=== PATIENT | male | born 1960 | race African-American/Black ===

== ENCOUNTER 2024-06-02 20:06 | Inpatient (IN) | payer OTHER ==
[~2024-06-02] VITALS: Ht 175.3 cm; Wt 100.8 kg
--- NOTE | 2024-06-02 20:33 | ED.PDOC ---
History of Present Illness HPI Comments A 63 year old male brought in by EMS presents to the ED with the chief complaint of hypoglycemia onset today. Per EMS, called EMS due to the patient not responding. Patient was taking a nap and was not responding to , upon EMS arrival patient's blood sugar was 25 and was given 250 mL Dextrose 10% and repeat BS was 69 and oral glucose was given in route. Patient states he has no symptoms and did not eat prior to his nap. He has a past medical history of DM, HTN, HLD. No other symptoms or modifying factors present at this time. Chief Complaint: Hypoglycemia Time Seen by MD: 20:25 Reviewed Notes: Medications, Allergies Allergies: Coded Allergies: No Known Drug Allergy (Verified Allergy, Unknown, 06/02/24) Information Source: Patient, Emergency Med Personnel Mode of Arrival: EMS Severity: Moderate Timing: Hours Duration: Since onset Prehospital treatment: None Past Medical History PAST MEDICAL HISTORY: DM, High Lipids, HTN Surgical History: Denies all surgeries Family History Family History: Reviewed,noncontributory to illness, No family hx of Cancer, No family hx of DM, No family hx of Heart fifi, No family hx of HTN, No family hx ofKidney fifi, No family hx of Liver fifi, No family hx of Lung fifi, No family hx of Stroke Social History Smoker: Non-Smoker Alcohol: Denies ETOH Use Drugs: Denies Drug Use Lives In: Home Constitutional: denies: chills, diaphoresis, fatigue, fever, malaise, sweats, weakness, others EENTM: denies: blurred vision, double vision, ear bleeding, ear discharge, ear drainage, ear pain, ear ringing, eye pain, eye redness, hearing loss, mouth pain, mouth swelling, nasal discharge, nose bleeding, nose congestion, nose pain, photophobia, tearing, throat pain, throat swelling, voice changes, others Respiratory: denies: cough, hemoptysis, orthopnea, SOB at rest, shortness of breath, SOB with excertion, stridor, wheezing, others Cardiovascular: denies: chest pain, dizzy spells, diaphoresis, Dyspnea on exertion, edema, irregular heart beat, left arm pain, lightheadedness, palpitations, PND, syncope, others Gastrointestinal: denies: abdomen distended, abdominal pain, blood streaked bowels, constipated, diarrhea, dysphagia, difficulty swallowing, hematemesis, melena, nausea, poor appetite, poor fluid intake, rectal bleeding, rectal pain, vomiting, others Genitourinary: denies: burning, dysuria, flank pain, frequency, hematuria, incontinence, penile discharge, penile sore, pain, testicle pain, testicle swelling, urgency, others Neurological: denies: dizziness, fainting, headache, left sided numbness, left sided weakness, numbness, paresthesia, pre-existing deficit, right sided numbness, right sided weakness, seizure, speech problems, tingling, tremors, weakness, others Musculoskeletal: denies: back pain, gout, joint pain, joint swelling, muscle pain, muscle stiffness, neck pain, others Integumetry: denies: bruises, change in color, change in hair/nails, dryness, laceration, lesions, lumps, rash, wounds, others Allergic/Immunocompromised: denies: Difficulty Healing, Frequent Infections, Hives, Itching, others Endocrine: denies: excessive hunger, excessive sweating, excessive thirst, excessive urination, flushing, intolerance to cold, intolerance to heat, unexpl ained weight gain, unexplained weight loss, others Psychiatric: denies: anxiety, bipolar disorder, depression, hopeless, panic disorder, schizophrenia, sleepless, suicidal, others All Other Systems: Reviewed and Negative Physical Exam General Appearance: No Apparent Distress, Normal HEENT: Normal ENT Inspection, Pharynx Normal, TMs Normal Neck: Full Range of Motion, Non-Tender, Normal, Normal Inspection Respiratory: Chest Non-Tender, Lungs Clear, No Accessory Muscle Use, No Respiratory Distress, Normal Breath Sounds Cardiovascular: No Edema, No JVD, No Murmur, No Gallop, Normal Peripheral Pulses, Regular Rate/Rhythm Breast Exam: Deferred Gastrointestinal: No Organomegaly, Non Tender, No Pulsatile Mass, Normal Bowel Sounds, Soft Genitalia: Deferred Pelvic: Deferred Rectal: Deferred Extremities: No calf tenderness, Normal capillary refill, Normal inspection, Normal range of motion, Non-tender, No pedal edema Musculoskeletal : Apperance: Normal Neurologic: Alert, zipper setter chainstitch II-XII nml as Tested, No Motor Deficits, Normal Affect, Normal Mood, No Sensory Deficits Cerebellar Function: Normal Reflexes: Normal Skin: Dry, Normal Color, Warm Lymphatic: No Adenopathy Was a procedure done? Was a procedure done?: No Differential Dx Considerations may include: uncontrolled diabetes, slight abnormality, infectious etiology X-Ray, Labs, Meds, VS Vital Signs Date Time Temp Pulse Resp B/P (MAP) Pulse Ox O2 Delivery O2 Flow Rate FiO2 06/02/24 20:44 98.1 75 15 149/72 (97) 95 98.1 06/02/24 20:19 97.6 87 18 172/101 (124) 96 Lab Test 06/02/24 21:04 Range/Units White Blood Count 13.0 H 4.4-10.8 10^3/uL Red Blood Count 4.74 4.5-5.90 10^6/uL Hemoglobin 14.7 13.5-17.5 g/dL Hematocrit 43.7 41.0-53.0 % Mean Corpuscular Volume 92.1 80.0-100.0 fL Mean Corpuscular Hemoglobin 31.0 28.0-32.0 pg Mean Corpuscular Hemoglobin Concent 33.7 32.0-36.0 g/dL Red Cell Distribution Width 13.5 11.8-14.3 % Platelet Count 236 140-450 10^3/uL Mean Platelet Volume 9.3 6.9-10.8 fL Neutrophils (%) (Auto) 85.6 H 37.0-80.0 % Lymphocytes (%) (Auto) 7.0 L 10.0-50.0 % Monocytes (%) (Auto) 6.8 0.0-12.0 % Eosinophils (%) (Auto) 0.4 0.0-7.0 % Basophils (%) (Auto) 0.2 0.0-2.0 % Neutrophils # (Auto) 11.2 H 1.6-8.6 10 ^3/uL Lymphocytes # (Auto) 0.9 0.4-5.4 10 ^3/uL Monocytes # (Auto) 0.9 0-1.3 10 ^3/uL Eosinophils # (Auto) 0 0-0.8 10 ^3/uL Basophils # (Auto) 0 0-0.2 10 ^3/uL Nucleated Red Blood Cells 0.1 % Sodium Level 141 136-145 mmol/L Potassium Level 3.1 L 3.5-5.1 mmol/L Chloride Level 107 98-107 mmol/L Carbon Dioxide Level 25 20-31 mmol/L Anion Gap 9 5-15 Blood Urea Nitrogen 12 9-23 mg/dL Creatinine 1.41 H 0.700-1.30 mg/dL Glomerular Filtration Rate Calc 56 >90 mL/min BUN/Creatinine Ratio 8.5 L 10.0-20.0 Serum Glucose 80 74-106 mg/dL Calcium Level 9.4 8.7-10.4 mg/dL Troponin I High Sensitivity 376 *H </=54 ng/L Current Medications Medications (Trade) Dose Ordered Sig/Zacarias Route Start Time Stop Time Status Last Admin Dextrose 50 ml ONCE ONCE IV 06/02/24 20:30 06/02/24 20:31 DC 06/02/24 20:40 [place] [address] Ph: [phone] DIAGNOSTIC IMAGING Diagnostic Imaging Report : [id number] Signed PATIENT: JUAN PEREZ ACCT: [id number] UNIT: [id number] : 1960 LOC: ER ROOM / BED: / AGE / SEX: 63 / M ADM STATUS: REG ER SERVICE 02 ORDERING PHYSICIAN: DEIDRE ENRIQUE MD PROCEDURE(s): CXRP - CHEST PORTABLE REASON: ams, hypoglycemia ORDER NUMBER(s): [id number], ACCESSION NUMBER(s): [id number] CHEST RADIOGRAPH Indication:ams, hypoglycemia Technique: Single frontal view of the chest was obtained Comparison: None FINDINGS: Lines and Tubes: None Lungs: No focal consolidation. Pleura: No effusion. No pneumothorax. Cardiomediastinal contours: Unremarkable Bones: No acute osseous abnormality. IMPRESSION: No acute cardiopulmonary disease. ATED BY: HORACIO BANGURA DO DICTATED DATE/TIME: 06/02/242124 SIGNED BY: HORACIO BANGURA DO SIGNED DATE/TIME: 06/02/242124 CC: Time of 1ST Reevaluation: 20:55 Reevaluation 1ST: Unchanged Patient Education/Counseling: Diagnosis, Treatment, Prognosis Family Education/Counseling: No Family Present Departure 1 Departure Time of Disposition: 22:35 (Patient with a recurrent hypoglycemia. Patient also with an elevated troponin. EKGs started ischemic color chest x-ray is benign,.) Impression: Primary Impression: Hypoglycemia Additional Impression: Elevated troponin Disposition: ADMITTED INPATIENT Admit to: Med Surg Condition: Serious Critical Care Note Critical Care Time?: Yes Critical care comment: Hypoglycemia Authorized and Performed by: Deidre Enrique MD Total critical care time: Approximately 32 minutes Due to a high probability of clinically significant, life threatening deterioration, the patient required my highest level of preparedness to intervene emergently and I personally spent this critical care time directly and personally managing the patient. This critical care time included obtaining a history; examining the patient; pulse oximetry; ordering and review of studies; arranging urgent treatment with development of a management plan; evaluation of patient's response to treatment; frequent reassessment; and, discussions with other providers. This critical care time was performed to assess and manage the high probability of imminent, life-threatening deterioration that could result in multi-organ failure. It was exclusive of separately billable procedures and treating other patients and teaching time. Please see my other sections and the rest of the note for further information on patient assessment and treatment. Stability Stability form required: No Heart Score Heart Score: Heart Score Response (Comments) Value History Slightly Suspicious 0 EKG Normal 0 Age 45-64 1 Risk Factors >3 or Hx ASHD 2 Troponin >3 x's Normal limit 2 Total 5 I personally scribed for DEIDRE ENRIQUE MD ([email or web address]) on 06/02/24 at 20:33. Electronically submitted by Verenice Ardon ([email or web address]). I personally scribed for DEIDRE ENRIQUE MD ([email or web address]) on 06/02/24 at 20:37. Electronically submitted by Verenice Ardon ([email or web address]). I personally scribed for DEIDRE ENRIQUE MD ([email or web address]) on 06/02/24 at 21:37. Electronically submitted by Verenice Ardon ([email or web address]). DEIDRE ENRIQUE MD Jun 02, 2024 20:33
[2024-06-02] MEDS: DEXTROSE (50%) 50ML SYRG IV ONE (20:40)
[2024-06-02 21:27] LABS: Basophils # (auto) 0 10 ^3/uL (0-0.2); Basophils % (auto) 0.2 % (0.0-2.0); Eosinophils # (auto) 0 10 ^3/uL (0-0.8); Eosinophils % (auto) 0.4 % (0.0-7.0); Hematocrit 43.7 % (41.0-53.0); Hemoglobin 14.7 g/dL (13.5-17.5); Lymphocytes # (auto) 0.9 10 ^3/uL (0.4-5.4); Mean Corpuscular Hgb Conc. 33.7 g/dL (32.0-36.0); Mean Corpuscular Volume 92.1 fL (80.0-100.0); Monocytes # (auto) 0.9 10 ^3/uL (0-1.3); Monocytes % (auto) 6.8 % (0.0-12.0); Neutrophils # (auto) 11.2 10 ^3/uL (1.6-8.6); Neutrophils % (auto) 85.6 % (37.0-80.0); Nucleated Red Blood Cells % 0.1 %; Platelet Count (auto) 236 10^3/uL (140-450); Red Blood Cells 4.74 10^6/uL (4.5-5.90); Red Cell Distribution Width 13.5 % (11.8-14.3)
--- NOTE | 2024-06-02 21:28 | DVH ---
CHEST RADIOGRAPH Indication:ams, hypoglycemia Technique: Single frontal view of the chest was obtained Comparison: None FINDINGS: Lines and Tubes: None Lungs: No focal consolidation. Pleura: No effusion. No pneumothorax. Cardiomediastinal contours: Unremarkable Bones: No acute osseous abnormality. IMPRESSION: No acute cardiopulmonary disease.
[2024-06-02 21:59] LABS: Chloride 107 mmol/L (98-107); Potassium 3.1 mmol/L (3.5-5.1); Sodium 141 mmol/L (136-145)
[2024-06-02 22:00] LABS: Anion Gap 9 (5-15); Calcium 9.4 mg/dL (8.7-10.4); Carbon Dioxide 25 mmol/L (20-31)
[2024-06-02 22:05] LABS: BUN/Creatinine Ratio 8.5 (10.0-20.0); Blood Urea Nitrogen 12 mg/dL (9-23); Glucose 80 mg/dL (74-106)
[2024-06-03] VITALS (8 sets, daily range): BP systolic 142–160; BP diastolic 73–87; PULSE 62–85; RESP 15–19; TEMP 98.2–98.8; O2SAT 95–99
--- NOTE | 2024-06-03 01:47 | DVH ---
EXAM: CT HEAD WITHOUT CONTRAST HISTORY: ams COMPARISON: None TECHNIQUE: Axial images were obtained and reformatted in coronal and sagittal planes. All CT scans at this medical facility are performed using dose modulation techniques as appropriate t o a performed exam including the following: Automated exposure control was utilized; adjustment of th e MA and/or KV according to patient size; and use of iterative reconstruction technique. CT Dose: CTDI volume is 60 mGy. Dose-length product is 1059 mGy*cm FINDINGS: Supratentorial Region: No evidence for large acute territorial ischemia. No intracranial hemorrhage is noted. Confluent white matter hypoattenuating foci are noted bilaterally, which typically reflect chronic microvascular ischemic changes. Posterior Fossa: No acute abnormality. Brainstem: Unremarkable. Sellar/Suprasellar Region: .Tiny foci of air in the region of the bilateral cavernous sinuses. Ventricles, Cisterns, Sulci: Age-appropriate. Orbits: Unremarkable. Paranasal Sinuses: Unremarkable. Mastoid Air Cells: Unremarkable. Vasculature: Unremarkable. Bones/Soft Tissues: No acute abnormality. Other: None. IMPRESSION: No acute intracranial process. Cavernous sinus gas which are nonspecific but can be seen in the setti ng of traumatic pneumocephalus versus iatrogenic pneumocephalus versus barotrauma. Clinical correlat ion is advised.
[2024-06-03] MEDS: DEXTROSE (50%) 50ML SYRG IV ONE (02:37)
[2024-06-03] MEDS ORDERED: MORPHINE SULFATE INJ 2 MG/ml SYRG IV PRN (03:00)
[2024-06-03] MEDS ORDERED: DEXTROSE (50%) 50ML SYRG IV PRN (03:00)
[2024-06-03] MEDS ORDERED: NITROGLYCERIN 0.4 MG SL TAB SL PRN (03:00)
[2024-06-03] MEDS ORDERED: HYDROcodone-ACET 5/325MG TAB PO PRN (03:00)
[2024-06-03] MEDS ORDERED: ONDANSETRON HCL 4 MG/2 ML VIAL IV PRN (03:00)
[2024-06-03] MEDS ORDERED: DOCUSATE SOD 100 MG CAP PO PRN (03:00)
[2024-06-03] MEDS ORDERED: ACETAMINOPHEN 325 MG TAB PO PRN (03:00)
[2024-06-03] MEDS ORDERED: ENOXAPARIN SOD 80 MG/0.8ML SYRINGE SC ONE (03:00)
--- NOTE | 2024-06-03 03:24 | DVHHP2 ---
History of Present Illness Reason for Visit: Hypoglycemia History of Present Illness The patient is a 63-year-old male with past medical history of DM, hyperlipidemia, and hypertension who presented to [facility] ED for evaluation of hypoglycemia. Patient's called EMS due to patient not responding while taking a nap. When EMS arrived on the scene, the patient's blood sugar was 25 and was given 250 mL dextrose 10% and blood glucose improved to 69 en route to our facility ED. patient was seen and evaluated in the ED, laboratory data shows WBC 13.0, platelets 236, sodium 141, potassium 3.1, BUN 12, creatinine 1.41, glucose 80, troponin 380, blood pressure 160/86, pulse 72, temperature 98.1 F, O2 saturation 99% on room. Head CT showed no acute intracranial process. Please see medication orders section in the computer. On my assessment, patient denies chest pain, no headache, no dizziness, no shortness of breath, no nausea, no vomiting, no fever, no chills. Patient was admitted for further evaluation and medical management. Past Medical History DM, High Lipids, HTN Past Surgical History Denies all surgeries Family History Reviewed, noncontributory to the management of this case. Past Social History The patient lives at home, denies smoking, alcohol or illicit drugs abuse. Review of Systems Constitutional: Yes: Weakness; No: Fever, Chills, Sweats, Malaise, Other Eyes: No: Pain, Vision change, Conjunctivae inflammation, Eyelid inflammation, Other, Redness ENT: No: Ear pain, Ear discharge, Nose pain, Nose discharge, Nose congestion, Mouth pain, Mouth swelling, Throat pain, Throat swelling, Other Respiratory: No: Cough, Dry, Shortness of breath, SOB with excertion, Wheezing, Hemoptysis, Pleuritic Pain, Sputum, Wheezing, Other Cardiovascular: No: Chest Pain, Palpitations, Orthopnea, Paroxysmal Noc. Dyspnea, Edema, Lt Headedness, Other Gastrointestinal: No: Nausea, Vomiting, Abdominal Pain, Diarrhea, Constipation, Melena, Hematochezia, Other Genitourinary: No Dysuria, No Frequency, No Incontinence, No Hematuria, No Retention, No Other Musculoskeletal: No: other, neck pain, shoulder pain, arm pain, back pain, hand pain, leg pain, foot pain Skin: No: Rash, Lesions, Jaundice, Bruising, Other Neurological: No: Weakness, Numbness, Incoordination, Change in speech, Confusion, Seizures, Other Allergies: Coded Allergies: No Known Drug Allergy (Verified Allergy, Unknown, 06/02/24) Exam Vital Signs Vital Signs Date Time Temp Pulse Resp B/P (MAP) Pulse Ox O2 Delivery O2 Flow Rate FiO2 06/03/24 02:00 60 14 160/86 (110) 100 06/02/24 20:44 98.1 98.1 06/02/24 20:27 Room Air* 0 21 General Appearance: Alert, Oriented X3, Cooperative, No acute distress HEENT: Atraumatic, PERRLA, EOMI, Mucous membr. moist/pink Respiratory: Clear to auscultation, Normal air movement Cardiovascular: Regular rate, Normal S1, Normal S2, No murmurs Abdominal: Normal bowel sounds, Soft, No tenderness, No hepatospenomegaly, No masses Extremities: No clubbing, No cyanosis, No edema, Normal pulses, No tenderness/swelling Skin: No rashes, No breakdown, No significant lesion Neuro: Normal speech, Normal tone, Sensation intact, Cranial nerves 3-12 NL, Reflexes 2+, Other (Generalized weakness) Psych/Mental Status: Mental status NL, Mood NL Labs/Xrays Labs Test 06/03/24 01:31 06/03/24 00:35 06/02/24 21:04 Range/Units Troponin I High Sensitivity 353 *H </=54 ng/L POC Glucose 99 70-106 mg/dl White Blood Count 13.0 H 4.4-10.8 10^3/uL Red Blood Count 4.74 4.5-5.90 10^6/uL Hemoglobin 14.7 13.5-17.5 g/dL Hematocrit 43.7 41.0-53.0 % Mean Corpuscular Volume 92.1 80.0-100.0 fL Mean Corpuscular Hemoglobin 31.0 28.0-32.0 pg Mean Corpuscular Hemoglobin Concent 33.7 32.0-36.0 g/dL Red Cell Distribution Width 13.5 11.8-14.3 % Platelet Count 236 140-450 10^3/uL Mean Platelet Volume 9.3 6.9-10.8 fL Neutrophils (%) (Auto) 85.6 H 37.0-80.0 % Lymphocytes (%) (Auto) 7.0 L 10.0-50.0 % Monocytes (%) (Auto) 6.8 0.0-12.0 % Eosinophils (%) (Auto) 0.4 0.0-7.0 % Basophils (%) (Auto) 0.2 0.0-2.0 % Neutrophils # (Auto) 11.2 H 1.6-8.6 10 ^3/uL Lymphocytes # (Auto) 0.9 0.4-5.4 10 ^3/uL Monocytes # (Auto) 0.9 0-1.3 10 ^3/uL Eosinophils # (Auto) 0 0-0.8 10 ^3/uL Basophils # (Auto) 0 0-0.2 10 ^3/uL Nucleated Red Blood Cells 0.1 % Sodium Level 141 136-145 mmol/L Potassium Level 3.1 L 3.5-5.1 mmol/L Chloride Level 107 98-107 mmol/L Carbon Dioxide Level 25 20-31 mmol/L Anion Gap 9 5-15 Blood Urea Nitrogen 12 9-23 mg/dL Creatinine 1.41 H 0.700-1.30 mg/dL Glomerular Filtration Rate Calc 56 >90 mL/min BUN/Creatinine Ratio 8.5 L 10.0-20.0 Serum Glucose 80 74-106 mg/dL Calcium Level 9.4 8.7-10.4 mg/dL PATIENT: JUAN PEREZ IACCT: [id number] UNIT: [id number] : 1960 LOC: ER ROOM / BED: / AGE / SEX: 63 / M ADM STATUS: REG ER SERVICE 0120 ORDERING PHYSICIAN: DEIDRE ENRIQUE MD PROCEDURE(s): HWOCT - HEAD WITHOUT CONTRAST [facility]AS[facility] ORDER NUMBER(s): [id number], ACCESSION NUMBER(s): [id number] EXAM: CT HEAD WITHOUT CONTRAST HISTORY: ams COMPARISON: None TECHNIQUE: Axial images were obtained and reformatted in coronal and sagittal planes. All CT scans at this medical facility are performed using dose modulation t echniques as appropriate to a performed exam including the following: Automated exposure control was utilized; adjustment of the MA and/or KV according to patient size; and use of iterative reconstruction technique. CT Dose: CTDI volume is 60 mGy. Dose-length product is 1059 mGy*cm FINDINGS: Supratentorial Region: No evidence for large acute territorial ischemia. No intracranial hemorrhage is noted. Confluent white matter hypoattenuating foci are noted bilaterally, which typically reflect chronic microvascular ischemic changes. Posterior Fossa: No acute abnormality. Brainstem: Unremarkable. Sellar/Suprasellar Region: Tiny foci of air in the region of the bilateral cavernous sinuses. Ventricles, Cisterns, Sulci: Age-appropriate. Orbits: Unremarkable. Paranasal Sinuses: Unremarkable. Mastoid Air Cells: Unremarkable. Vasculature: Unremarkable. Bones/Soft Tissues: No acute abnormality. Other: None. IMPRESSION: No acute intracranial process. Cavernous sinus gas which are nonspecific but can be seen in the setting of traumatic pneumocephalus versus iatrogenic pneumocephalus versus barotrauma. Clinical correlation is advised. ORDERING PHYSICIAN: DEIDRE ENRIQUE MD PROCEDURE(s): CXRP - CHEST PORTABLE REASON: ams, hypoglycemia ORDER NUMBER(s): [id number], ACCESSION NUMBER(s): [id number] CHEST RADIOGRAPH Indication:ams, hypoglycemia Technique: Single frontal view of the chest was obtained Comparison: None FINDINGS: Lines and Tubes: None Lungs: No focal consolidation. Pleura: No effusion. No pneumothorax. Cardiomediastinal contours: Unremarkable Bones: No acute osseous abnormality. IMPRESSION: No acute cardiopulmonary disease. Assessment/Plan Assessment/Plan Acute renal injury Elevated troponin Hypokalemia Hypertension Leukocytosis, unspecified Generalized weakness Diabetes mellitus with hypoglycemia Plan 1. Admit to telemetry unit 2. Breathing treatment 3. Pain control management 4. Management of fluids and electrolytes 5. Consultation for hospitalist/cardiology 6. Diagnostic tests chest x-ray 7. DVT prophylaxis-on Lovenox 8. Repeat labs CBC, CMP in a.m. 9. Continue with current medical management 10. Treatment plan discussed with patient and RN. Patient verbalized understanding. Plan discussed with: Patient, Other (RN) Problem List: (1) Acute renal injury (2) Elevated troponin (3) Generalized weakness (4) Hypokalemia (5) Leukocytosis, unspecified (6) Hypertension (7) Diabetes mellitus with hypoglycemia Date of Service: Jun 03, 2024 Billing Provider: AMELIA ACOSTA DNP Common Visit Codes: 63426-[id number] INP/OBS CARE (HIGH) AMELIA ACOSTA DNP Jun 03, 2024 03:23
[2024-06-03 03:31] LABS: Urine Bacteria None Seen /hpf (None Seen)
[2024-06-03] MEDS: ENOXAPARIN SOD 40 MG/0.4 ML SYRINGE SC ONE (03:32)
[2024-06-03] MEDS: POTASSIUM CHL 20 Meq TABLET PO ONE (03:33)
[2024-06-03 03:38] LABS: Urine Blood Negative /uL (Negative); Urine Clarity Clear (Clear); Urine Color Light-Yellow (Yellow); Urine Protein, UAD 1+ (Negative); Urine Specific Gravity 1.015 (1.001-1.035); Urine Urobilinogen Normal (Negative); Urine WBC 1 /hpf (0 - 3); Urine pH 5.5 (5.0-9.0)
[2024-06-03] MEDS: cefTRIAXone 1GM/50ML D5W 50 ML IV ONE (03:52)
[2024-06-03 03:57] LABS: Basophils # (auto) 0 10 ^3/uL (0-0.2); Basophils % (auto) 0.3 % (0.0-2.0); Eosinophils # (auto) 0.1 10 ^3/uL (0-0.8); Eosinophils % (auto) 1.3 % (0.0-7.0); Hemoglobin 13.4 g/dL (13.5-17.5); Lymphocytes # (auto) 1.4 10 ^3/uL (0.4-5.4); Mean Corpuscular Hemoglobin 30.8 pg (28.0-32.0); Mean Corpuscular Hgb Conc. 33.6 g/dL (32.0-36.0); Mean Corpuscular Volume 91.8 fL (80.0-100.0); Monocytes # (auto) 0.9 10 ^3/uL (0-1.3); Monocytes % (auto) 8.9 % (0.0-12.0); Neutrophils # (auto) 7.8 10 ^3/uL (1.6-8.6); Neutrophils % (auto) 75.5 % (37.0-80.0); Platelet Count (auto) 222 10^3/uL (140-450); Red Blood Cells 4.35 10^6/uL (4.5-5.90); Red Cell Distribution Width 13.7 % (11.8-14.3); White Blood Cell 10.3 10^3/uL (4.4-10.8)
[2024-06-03 04:22] LABS: Alanine Aminotransferase 21 U/L (7-40); Albumin 3.9 g/dL (3.2-4.8); Alkaline Phosphatase 121 U/L (46-116); Anion Gap 9 (5-15); Aspartate Aminotransferase 23 U/L (13-40); BUN/Creatinine Ratio 11.9 (10.0-20.0); Blood Urea Nitrogen 16 mg/dL (9-23); Carbon Dioxide 25 mmol/L (20-31); Chloride 108 mmol/L (98-107); Glucose 131 mg/dL (74-106); Potassium 3.7 mmol/L (3.5-5.1); Sodium 142 mmol/L (136-145)
[2024-06-03 04:23] LABS: Bilirubin, Total 0.4 mg/dL (0.2-1.0)
[2024-06-03] MEDS: SODIUM CHLOR 0.9% PF (SALINE LOCK) 10ML VIAL/SYR IV SCH (05:49)
[2024-06-03] MEDS: ACCU-CHEK COMFORT CURVE STRIP VI SCH (06:00)
[2024-06-03] MEDS: InsuLIN REG 1unit/0.01ml Soln (100units/ml) SC SCH (06:01)
[2024-06-03] MEDS ORDERED: ENOXAPARIN SOD 80 MG/0.8ML SYRINGE SC SCH (10:00)
--- NOTE | 2024-06-03 12:34 | DVHINCON2 ---
Date Seen: Jun 03, 2024 Referring Physician Eric Reason for Consultation Elevated Troponin History of Present Illness 63-year-old male with PMH for HTN, HLD, dm not taking any medication at this time, presents to the hospital with altered mental status. Apparently patient was fairly lethargic and not seem in right toes and therefore EMS was called. Upon arrival patient noted to have blood glucose level of 25 and was given dextrose in the field with improved to 69 in route to facility. Upon evaluation in the ER patient's mentation had improved responding appropriately, patient also noted to be hypokalemic with potassium 3.1, PANDA with creatinine 1.41, hypertensive with blood pressure 160/86, and have elevated troponin trending 376, 380, 353, 364, 351. Patient denies any lightheadedness, palpitations, chest pains, diaphoresis. He does endorse that he gets little short of breath at times with exertion. Past Medical History HTN HLD Diabetes Past Surgical History Denies previous surgeries Family History Denies pertinent family cardiac history Social History Denies alcohol, tobacco, or illicit drug use Allergies: Coded Allergies: No Known Drug Allergy (Verified Allergy, Unknown, 06/02/24) Current Medications Current Medications Medications (Trade) Dose Ordered Sig/Zacarias Route PRN Reason Start Time Stop Time Status Last Admin Enoxaparin Sodium (Lovenox) 80 mg DAILY SC 06/03/24 10:00 UNV Diagnostic Test (Pha) (Accu-Chek Comfort Curve T) 1 strip ACHS 06/03/24 07:00 06/03/24 11:36 Insulin Human Regular (InsuLIN R) ACHS SC 06/03/24 07:00 Dextrose 50 ml UD PRN IV Blood Sugar LESS THAN 60 06/03/24 03:00 Sodium Chloride (Saline Lock Ns) 10 ml Q8HR IV 06/03/24 06:00 06/03/24 05:49 Acetaminophen/ Hydrocodone Bitart ([place] 5/325MG Tab) 1 tab Q4HP PRN PO MODERATE PAIN (4-6 PAIN SCALE) 06/03/24 03:00 Ondansetron HCl (Zofran) 4 mg Q4HP PRN IV NAUSEA / VOMITING 06/03/24 03:00 Docusate Sodium (Colace Capsule) 100 mg BIDPRN PRN PO FOR CONSTIPATION 06/03/24 03:00 Acetaminophen (Tylenol Tablet) 650 mg Q6HP PRN PO PAIN SCALE 1-3 OR TEMP>100.4 06/03/24 03:00 Nitroglycerin (Ntrostat Sublingual) 0.4 mg Q5MINP PRN SL FOR CHEST PAIN 06/03/24 03:00 Morphine Sulfate 2 mg Q30M PRN IV FOR CHEST PAIN 06/03/24 03:00 Enoxaparin Sodium (Lovenox) 40 mg DAILY SC 06/04/24 10:00 Hydralazine HCl (Apresoline Injection) 10 mg Q6HP PRN IV SBP>150 06/03/24 03:15 Ceftriaxone Sodium 50 ml @ 100 mls/hr DAILY@0300 IV 06/04/24 03:00 Review of Systems Constitutional: No: Fever, Chills, Sweats, Weakness, Malaise, Other Eyes: No: Pain, Vision change, Conjunctivae inflammation, Eyelid inflammation, Other, Redness ENT: No: Ear pain, Ear discharge, Nose pain, Nose discharge, Nose congestion, Mouth pain, Mouth swelling, Throat pain, Throat swelling, Other Respiratory: No: Cough, Dry, , Wheezing, Hemoptysis, Pleuritic Pain, Sputum, Wheezing, Other positive: Shortness of breath, SOB with exertion Cardiovascular: ; No: Chest Pain Palpitations, Orthopnea, Paroxysmal Noc. Dyspnea, Edema, Lt Headedness, Other Gastrointestinal: No: Nausea, Vomiting, Abdominal Pain, Diarrhea, Constipation, Melena, Hematochezia, Other Genitourinary: No Dysuria, No Frequency, No Incontinence, No Hematuria, No Retention, No Other Musculoskeletal: neck pain; No: other, shoulder pain, arm pain, back pain, hand pain, leg pain, foot pain Skin: No: Rash, Lesions, Jaundice, Bruising, Other Neurological: Other (Dizziness, headache.); No: Weakness, Numbness, Incoordination, Change in speech, Confusion, Seizures Vital Signs Vital Signs Date Time Temp Pulse Resp B/P (MAP) Pulse Ox O2 Delivery O2 Flow Rate FiO2 06/03/24 06:21 Nasal Cannula* 2 28 06/03/24 04:06 64 11 137/83 (101) 98 06/03/24 03:22 98.4 98.4 Physical Exam General appearance: Patient is well-developed, well-nourished, in no acute distress. HEENT: Exam shows: Normocephalic, atraumatic, PERRLA, EOMI Neck: Supple, no bruits Chest: Equal chest excursion bilaterally. Breath sounds normal-no rales or wheezes. Heart: Rhythm: Regular rate; no murmur or gallop Abdomen: Exam shows: Soft, nontender, nondistended Musculoskeletal: No clubbing, no cyanosis, no lower extremity edema Dermatology: Skin warm, moist. Neurological: Exam shows: Alert and oriented x4, normal speech Available prior records, labs, EKG, rhythm strips reviewed and interpreted Labs/Diagnostic Data Labs Test 06/03/24 11:33 06/03/24 09:48 06/03/24 03:37 06/03/24 03:15 Range/Units POC Glucose 106 70-106 mg/dl Troponin I High Sensitivity 351 *H </=54 ng/L White Blood Count 10.3 4.4-10.8 10^3/uL Red Blood Count 4.35 L 4.5-5.90 10^6/uL Hemoglobin 13.4 L 13.5-17.5 g/dL Hematocrit 40.0 L 41.0-53.0 % Mean Corpuscular Volume 91.8 80.0-100.0 fL Mean Corpuscular Hemoglobin 30.8 28.0-32.0 pg Mean Corpuscular Hemoglobin Concent 33.6 32.0-36.0 g/dL Red Cell Distribution Width 13.7 11.8-14.3 % Platelet Count 222 140-450 10^3/uL Mean Platelet Volume 9.3 6.9-10.8 fL Neutrophils (%) (Auto) 75.5 37.0-80.0 % Lymphocytes (%) (Auto) 14.0 10.0-50.0 % Monocytes (%) (Auto) 8.9 0.0-12.0 % Eosinophils (%) (Auto) 1.3 0.0-7.0 % Basophils (%) (Auto) 0.3 0.0-2.0 % Neutrophils # (Auto) 7.8 1.6-8.6 10 ^3/uL Lymphocytes # (Auto) 1.4 0.4-5.4 10 ^3/uL Monocytes # (Auto) 0.9 0-1.3 10 ^3/uL Eosinophils # (Auto) 0.1 0-0.8 10 ^3/uL Basophils # (Auto) 0 0-0.2 10 ^3/uL Nucleated Red Blood Cells 0.0 % Sodium Level 142 136-145 mmol/L Potassium Level 3.7 3.5-5.1 mmol/L Chloride Level 108 H 98-107 mmol/L Carbon Dioxide Level 25 20-31 mmol/L Anion Gap 9 5-15 Blood Urea Nitrogen 16 9-23 mg/dL Creatinine 1.35 H 0.700-1.30 mg/dL Glomerular Filtration Rate Calc 59 >90 mL/min BUN/Creatinine Ratio 11.9 10.0-20.0 Serum Glucose 131 H 74-106 mg/dL Calcium Level 9.0 8.7-10.4 mg/dL Total Bilirubin 0.4 0.2-1.0 mg/dL Aspartate Amino Transferase (AST) 23 13-40 U/L Alanine Aminotransferase (ALT) 21 7-40 U/L Alkaline Phosphatase 121 H 46-116 U/L Total Protein 6.0 5.7-8.2 g/dL Albumin 3.9 3.2-4.8 g/dL Urine Color Light-yellow Yellow Urine Clarity Clear Clear Urine pH 5.5 5.0-9.0 Urine Specific [place] 1.015 1.001-1.035 Urine Protein 1+ H Negative Urine Ketones Negative Negative Urine Blood Negative Negative /uL Urine Nitrite Negative Negative Urine Bilirubin Negative Negative Urine Urobilinogen Normal Negative mg/dL Urine Leukocyte Esterase Negative Negative /uL Urine RBC 1 0 - 3 /hpf Urine WBC 1 0 - 3 /hpf Urine Squamous Epithelial Cells Few <5 /hpf Urine Bacteria None seen None Seen /hpf Urine Glucose 1+ H Normal mg/dL Assessment (Dr. Thompson) * Elevated Troponin -likely type 2 IA. denies chest pain. EKG negative for acute ST abnormality. Continue aspirin and statin. Follow up echo. Patient will need ischemic workup inpatient versus outpatient. * Acute encephalopathy - likely in setting of hypoglycemia. CTA negative for acute intracranial process. * HTN - started on amlodipine 5 mg daily. Continue trending. * HLD - continue statin. * Hypoglycemia in setting of DM - management per primary team * PANDA - improving. Continue monitoring. Avoid nephrotoxic agents. Case Discussed with Dr Thompson. Patient having intermittent episodes of confusion during assessment. Continue trending BP, monitor response to amlodip ine. Follow-up echo. Critical care, time spent: 35 minutes This medical document was created using an electronic medical record system with voice recognition software and computerized dictation system. Although this document has been carefully reviewed, there might still be some phonetic and typographical errors. Occasional wrong-word or ``sound-alike substitutions may have occurred due to the inherent limitations of voice recognition software. These areas are purely typographical due to imperfections of the software programs and do not reflect any compromise in the patient's medical care. Please read the chart carefully and recognize, using context, where these substitutions have occurred. Thank you for allowing me to participate in the management of this patient. Plan discussed with: Patient Date of Service: Jun 03, 2024 Billing Provider: ANNE-MARIE THOMPSON MD Cardiology Common Codes: [id number] INP/OBS CARE (High), [id number] CARE 30-74 MIN NATALIA BARRY AGACNP Jun 03, 2024 12:33
[2024-06-03] MEDS: ASPirin 325 MG TAB PO ONE (14:41)
[2024-06-03] MEDS: amLODIPine BESYLATE 5 MG TAB PO ONE (14:42)
[2024-06-03] MEDS: ATORVASTATIN 20 MG TAB PO SCH (21:30)
--- NOTE | 2024-06-03 23:13 | DVHPN2 ---
Subjective The patient is a 63-year-old male with past medical history of DM, hyperlipidemia, and hypertension who presented to [facility] ED for evaluation of hypoglycemia. Patient's called EMS due to patient not responding while taking a nap. When EMS arrived on the scene, the patient's blood sugar was 25 and was given 250 mL dextrose 10% and blood glucose improved to 69 en route to our facility ED. patient was seen and evaluated in the ED, laboratory data shows WBC 13.0, platelets 236, sodium 141, potassium 3.1, BUN 12, creatinine 1.41, glucose 80, troponin 380, blood pressure 160/86, pulse 72, temperature 98.1 F, O2 saturation 99% on room. Head CT showed no acute intracranial process. Please see medication orders section in the computer. On my assessment, patient denies chest pain, no headache, no dizziness, no shortness of breath, no nausea, no vomiting, no fever, no chills. Patient was admitted for further evaluation and medical management. Update -06/03-patient reports history of diabetes and hypertension but no history of cardiac or renal nature. Also denies any family history of cardiac related diseases or deaths. Patient endorses that he was not feeling well/confused and had called EMS for him. Reviewed: Care Plan Changes from previous H/P or p: No Changes General: Per HPI Musculoskeletal: No other, No neck pain, No shoulder pain, No arm pain, No back pain, No hand pain, No leg pain, No foot pain Skin: No Rash, No Lesions, No Jaundice, No Bruising, No Other Objective Vitals Vital Signs Date Time Temp Pulse Resp B/P (MAP) Pulse Ox O2 Delivery O2 Flow Rate FiO2 06/03/24 22:00 98.2 67 17 147/78 (101) 98 98.2 06/03/24 20:00 Nasal Cannula* 2 28 Intake/Output Intake and Output 06/03/24 07:00 Intake Total 50 ml Balance 50 ml IV Total 50 ml Exam GEN: Healthy appearing, well-developed, NAD. Patient has foul order on body HEENT: NC/AT; MMM. CV: Distant heart sounds but, RRR in general LUNGS: Distant breath sounds. ABD: Soft, NT/ND, NBS, no masses or organomegaly. EXT: skin Warm, well perfused. no rashes. No clubbing, cyanosis, or edema. NEURO: Ambulating with no limitations. No focal deficits. Medications Current Medications Medications Dose Ordered Sig/Zacarias Route Start Time Stop Time Status Last Admin Dose Admin Enoxaparin Sodium 80 mg DAILY SC 06/03/24 10:00 UNV Diagnostic Test (Pha) 1 strip ACHS 06/03/24 07:00 06/03/24 21:46 1 STRIP Insulin Human Regular ACHS SC 06/03/24 07:00 06/03/24 21:52 2 UNITS Dextrose 50 ml UD PRN IV 06/03/24 03:00 Sodium Chloride 10 ml Q8HR IV 06/03/24 06:00 06/03/24 21:30 10 ML Acetaminophen/ Hydrocodone Bitart 1 tab Q4HP PRN PO 06/03/24 03:00 Ondansetron HCl 4 mg Q4HP PRN IV 06/03/24 03:00 Docusate Sodium 100 mg BIDPRN PRN PO 06/03/24 03:00 Acetaminophen 650 mg Q6HP PRN PO 06/03/24 03:00 Nitroglycerin 0.4 mg Q5MINP PRN SL 06/03/24 03:00 Morphine Sulfate 2 mg Q30M PRN IV 06/03/24 03:00 Enoxaparin Sodium 40 mg DAILY SC 06/04/24 10:00 Hydralazine HCl 10 mg Q6HP PRN IV 06/03/24 03:15 Ceftriaxone Sodium 50 ml @ 100 mls/hr DAILY@0300 IV 06/04/24 03:00 Aspirin 81 mg DAILY PO 06/04/24 10:00 Atorvastatin Calcium 40 mg HS PO 06/03/24 22:00 06/03/24 21:30 40 MG Amlodipine Besylate 5 mg DAILY PO 06/04/24 10:00 Laboratory Results Laboratory Tests 06/03/24 03:37 Chemistry Test 06/03/24 03:37 Albumin 3.9 g/dL (3.2-4.8) Calcium Level 9.0 mg/dL (8.7-10.4) Total Protein 6.0 g/dL (5.7-8.2) LFT Test 06/03/24 03:37 Alanine Aminotransferase (ALT) 21 U/L (7-40) Alkaline Phosphatase 121 U/L (46-116) H Aspartate Amino Transferase (AST) 23 U/L (13-40) Total Bilirubin 0.4 mg/dL (0.2-1.0) Urinalysis Test 06/03/24 03:15 Urine Color Light-yellow (Yellow) Urine Clarity Clear (Clear) Urine pH 5.5 (5.0-9.0) Urine Specific [place] 1.015 (1.001-1.035) Urine Protein 1+ (Negative) H Urine Ketones Negative (Negative) Urine Blood Negative /uL (Negative) Urine Nitrite Negative (Negative) Urine Bilirubin Negative (Negative) Urine Urobilinogen Normal mg/dL (Negative) Urine Leukocyte Esterase Negative /uL (Negative) Urine RBC 1 /hpf (0 - 3) Urine WBC 1 /hpf (0 - 3) Urine Squamous Epithelial Cells Few /hpf (<5) Urine Bacteria None seen /hpf (None Seen) Urine Glucose 1+ mg/dL (Normal) H Labs and/or images reviewed: Labs reviewed by me, Image(s) reviewed by me Assessment/Plan Assessment/Plan -06/03-patient reports history of diabetes and hypertension but no history of cardiac or renal nature. Also denies any family history of cardiac related diseases or deaths. Patient endorses that he was not feeling well/confused and had called EMS for him. Acute encephalopathy Altered mentation -CT head negative Chest x-ray negative Troponinemia NSTEMI type 2 On his initial eval in ED troponin is elevated, he has no history of cardiac nature Patient is consulted for Cardiology -started on aspirin and high-intensity statin -plan for echo tomorrow PANDA CKD can not be ruled out Patient presented with creatinine of 1.3 Hypertensive urgency Patient blood pressure in ED is 170s Started on amlodipine 5 Leukocytosis Neutrophilia -UA is negative for concerns for UTI Infection survey is negative for cough diarrhea neck stiffness rash DVT prophylaxis SCDs GI prophylaxis tolerate diet Renal diet Maintain in med tele Plan discussed with: Patient Date of Service: Jun 03, 2024 Billing Provider: RICHIE SIU MD Common Visit Codes: [id number] INP/OBS CARE(HIGH) RICHIE SIU MD Jun 03, 2024 23:13
[2024-06-04] VITALS (7 sets, daily range): BP systolic 106–181; BP diastolic 76–100; PULSE 58–91; RESP 17–20; TEMP 97.8–98.2; O2SAT 94–100
[2024-06-04] MEDS: cefTRIAXone 1GM/50ML D5W 50 ML IV SCH (02:14)
[2024-06-04 07:04] LABS: Basophils # (auto) 0.1 10 ^3/uL (0-0.2); Basophils % (auto) 0.7 % (0.0-2.0); Eosinophils # (auto) 0.2 10 ^3/uL (0-0.8); Eosinophils % (auto) 2.8 % (0.0-7.0); Hematocrit 41.2 % (41.0-53.0); Hemoglobin 14.2 g/dL (13.5-17.5); Lymphocytes # (auto) 1.7 10 ^3/uL (0.4-5.4); Mean Corpuscular Hemoglobin 31.3 pg (28.0-32.0); Mean Corpuscular Hgb Conc. 34.6 g/dL (32.0-36.0); Mean Corpuscular Volume 90.6 fL (80.0-100.0); Monocytes # (auto) 0.6 10 ^3/uL (0-1.3); Neutrophils % (auto) 66.5 % (37.0-80.0); Nucleated Red Blood Cells % 0.1 %; Platelet Count (auto) 233 10^3/uL (140-450); Red Blood Cells 4.55 10^6/uL (4.5-5.90); Red Cell Distribution Width 13.6 % (11.8-14.3); White Blood Cell 7.6 10^3/uL (4.4-10.8)
[2024-06-04 07:16] LABS: Alanine Aminotransferase 16 U/L (7-40); Albumin 4.1 g/dL (3.2-4.8); Alkaline Phosphatase 127 U/L (46-116); Anion Gap 7 (5-15); Aspartate Aminotransferase 12 U/L (13-40); BUN/Creatinine Ratio 13.1 (10.0-20.0); Blood Urea Nitrogen 16 mg/dL (9-23); Calcium 9.5 mg/dL (8.7-10.4); Carbon Dioxide 27 mmol/L (20-31); Chloride 109 mmol/L (98-107); Glucose 137 mg/dL (74-106); Potassium 3.7 mmol/L (3.5-5.1); Sodium 143 mmol/L (136-145)
[2024-06-04 07:17] LABS: Bilirubin, Total 0.5 mg/dL (0.2-1.0); Total Protein 6.8 g/dL (5.7-8.2)
[2024-06-04] MEDS: ASPirin 81 mg TAB PO SCH (09:52)
[2024-06-04] MEDS: amLODIPine BESYLATE 5 MG TAB PO SCH (09:52)
[2024-06-04] MEDS: ENOXAPARIN SOD 40 MG/0.4 ML SYRINGE SC SCH (09:54)
--- NOTE | 2024-06-04 10:39 | DVHPN2 ---
Consult Progress Note Objective vital signs Vital Sign Date Time Temp Pulse Resp B/P (MAP) Pulse Ox O2 Delivery O2 Flow Rate FiO2 06/04/24 09:52 153/91 06/04/24 08:00 98.0 91 20 96 98.0 06/04/24 08:00 Nasal Cannula* 2 28 Total Intake and Output 06/03/24 06/03/24 06/04/24 15:00 23:00 07:00 Intake Total 1080 ml 200 ml Balance 1080 ml 200 ml medications Current Medications Medications Dose Ordered Sig/Zacarias Route Start Time Stop Time Status Last Admin Dose Admin Enoxaparin Sodium 80 mg DAILY SC 06/03/24 10:00 UNV Diagnostic Test (Pha) 1 strip ACHS 06/03/24 07:00 06/03/24 21:46 1 STRIP Insulin Human Regular ACHS SC 06/03/24 07:00 06/03/24 21:52 2 UNITS Dextrose 50 ml UD PRN IV 06/03/24 03:00 Sodium Chloride 10 ml Q8HR IV 06/03/24 06:00 06/03/24 21:30 10 ML Acetaminophen/ Hydrocodone Bitart 1 tab Q4HP PRN PO 06/03/24 03:00 Ondansetron HCl 4 mg Q4HP PRN IV 06/03/24 03:00 Docusate Sodium 100 mg BIDPRN PRN PO 06/03/24 03:00 Acetaminophen 650 mg Q6HP PRN PO 06/03/24 03:00 Nitroglycerin 0.4 mg Q5MINP PRN SL 06/03/24 03:00 Morphine Sulfate 2 mg Q30M PRN IV 06/03/24 03:00 Enoxaparin Sodium 40 mg DAILY SC 06/04/24 10:00 06/04/24 09:54 40 MG Hydralazine HCl 10 mg Q6HP PRN IV 06/03/24 03:15 Ceftriaxone Sodium 50 ml @ 100 mls/hr DAILY@0300 IV 06/04/24 03:00 06/04/24 02:14 100 MLS/HR Aspirin 81 mg DAILY PO 06/04/24 10:00 06/04/24 09:52 81 MG Atorvastatin Calcium 40 mg HS PO 06/03/24 22:00 06/03/24 21:30 40 MG Amlodipine Besylate 5 mg DAILY PO 06/04/24 10:00 06/04/24 09:52 5 MG Examination: GENERAL:Normal, LUNGS:Normal, CVS:Normal, NEURO:Abnormal (Periods of confusion) laboratory and microbiology Laboratory Tests 06/04/24 06:16 Test 06/04/24 06:16 Range/Units Serum Glucose 137 H 74-106 mg/dL Problem List/Assessment/Plan Problem List/Assessment/Plan NSTEMI type II Hypertension Hyperlipidemia Rule out CVA Hypoglycemia, now resolved PANDA Plan/recommendations (Dr. Tang): Patient seen and examined at bedside with . Transthoracic echocardiogram reveals an EF of 55%. We will recommend to continue aggressive BP control and statin therapy. The patient may benefit from outpatient ischemic workup if deemed necessary. There is no further inpatient cardiac workup indicated at this time. Cardiology will sign off, please reconsult if needed. Thank you for allowing us to care for this patient. Please call with any questions or concerns. This medical document was created using an electronic medical record system with voice recognition software and computerized dictation system. Although this document has been carefully reviewed, there might still be some phonetic and typographical errors. Occasional wrong-word or ``sound-alike substitutions may have occurred due to the inherent limitations of voice recognition software. These areas are purely typographical due to imperfections of the software programs and do not reflect any compromise in the patient's medical care. Please read the chart carefully and recognize, using context, where these substitutions have occurred. Plan discussed with: Patient, Other (Bedside RN) Date of Service: Jun 04, 2024 Billing Provider: ANNE-MARIE TANG MD Common Visit Codes: [id number] INP/OBS CARE(HIGH) RADHIKA MARSHALL CONCESSION ATTENDANT Jun 04, 2024 10:39
--- NOTE | 2024-06-04 12:10 | DVHPN2 ---
Progress Note Date Seen: Jun 04, 2024 Medical Necessity Reason Pt with a Central, PICC or Fol: No Subjective Patient reports: No new complaints Review of Systems: HEENT:Normal, CVS:Normal, RESPIRATORY:Normal, GI:Normal, :Normal, MSK:Normal, NEURO:Normal Objective vital signs Vital Sign Date Time Temp Pulse Resp B/P (MAP) Pulse Ox O2 Delivery O2 Flow Rate FiO2 06/04/24 09:52 153/91 06/04/24 08:00 98.0 91 20 96 98.0 06/04/24 08:00 Nasal Cannula* 2 28 Total Intake and Output 06/03/24 06/03/24 06/04/24 15:00 23:00 07:00 Intake Total 1080 ml 200 ml Balance 1080 ml 200 ml medications Current Medications Medications Dose Ordered Sig/Zacarias Route Start Time Stop Time Status Last Admin Dose Admin Enoxaparin Sodium 80 mg DAILY SC 06/03/24 10:00 UNV Diagnostic Test (Pha) 1 strip ACHS 06/03/24 07:00 06/04/24 11:05 1 STRIP Insulin Human Regular ACHS SC 06/03/24 07:00 06/04/24 11:06 3 UNITS Dextrose 50 ml UD PRN IV 06/03/24 03:00 Sodium Chloride 10 ml Q8HR IV 06/03/24 06:00 06/03/24 21:30 10 ML Acetaminophen/ Hydrocodone Bitart 1 tab Q4HP PRN PO 06/03/24 03:00 Ondansetron HCl 4 mg Q4HP PRN IV 06/03/24 03:00 Docusate Sodium 100 mg BIDPRN PRN PO 06/03/24 03:00 Acetaminophen 650 mg Q6HP PRN PO 06/03/24 03:00 Nitroglycerin 0.4 mg Q5MINP PRN SL 06/03/24 03:00 Morphine Sulfate 2 mg Q30M PRN IV 06/03/24 03:00 Enoxaparin Sodium 40 mg DAILY SC 06/04/24 10:00 06/04/24 09:54 40 MG Hydralazine HCl 10 mg Q6HP PRN IV 06/03/24 03:15 Ceftriaxone Sodium 50 ml @ 100 mls/hr DAILY@0300 IV 06/04/24 03:00 06/04/24 02:14 100 MLS/HR Aspirin 81 mg DAILY PO 06/04/24 10:00 06/04/24 09:52 81 MG Atorvastatin Calcium 40 mg HS PO 06/03/24 22:00 06/03/24 21:30 40 MG Amlodipine Besylate 5 mg DAILY PO 06/04/24 10:00 06/04/24 09:52 5 MG Examination: GENERAL:Normal, HEENT:Normal, NECK:Normal, LUNGS:Normal, CVS:Normal, ABDOMEN:Normal, MSK:Normal, SKIN:Normal, NEURO:Normal, NEURO:Abnormal (confused), :Normal laboratory and microbiology Laboratory Tests 06/04/24 06:16 Test 06/04/24 06:16 Range/Units Serum Glucose 137 H 74-106 mg/dL Problem List/Assessment/Plan Problem List/Assessment/Plan #1 encephalopathy - metabolic/hypoglycemia #2 dm: ssi #3 htn #4 hyperlipidemia #5 non compliance with meds/diet #6 acute renal failure ?vasomotor nephropathy #7 nstemi: cardio eval advance care planning- full code- time spent 19 mins long dw Concha- explained plan of care Plan discussed with: Patient, Spouse My Orders My Orders Orders - ROBERTH HARGROVE MD Procedure Category Date Status Time * Neurology Consult CONS 06/04/24 Transmitted 12:03 Brain Head Wo Contrast MRI 06/04/24 Logged 12:03 Lorazepam 2mg/Ml Inj PHA 06/04/24 Logged (Ativan Inj) 12:15 Date of Service: Jun 04, 2024 Billing Provider: ROBERTH HARGROVE MD Common Visit Codes: [id number] INP/OBS CARE(HIGH) Secondary Visit Codes: [id number] CARE PLAN 30 MINUTES ROBERTH HARGROVE MD Jun 04, 2024 12:10
[2024-06-04] MEDS: LORazepam 2MG/ML-1ML VIAL IV ONE (12:15)
[2024-06-04] MEDS: SODIUM CHLORIDE 0.9% 1,000 ML IV SCH (14:18)
--- NOTE | 2024-06-04 15:18 | DVH ---
PROCEDURE: MRI BRAIN HEAD WO CONTRAST INDICATION: Altered level of consciousness EXAM DATE: 06/04/2024 02:28 PM COMPARISON: None TECHNIQUE: MRI brain without intravenous contrast. FINDINGS: There is a subcentimeter focus of restricted diffusion in the left high parietal lobe. There is no e vidence of intracranial hemorrhage, extra-axial collection, mass effect, midline shift, herniation or hydrocephalus. The ventricles, sulci, and cisterns appear otherwise age appropriate. There m oderate changes of chronic microvascular ischemic disease. There are no signal abnormalities on the susceptibility weighted sequences. The major vascular flow voids are present. There are mucus ret ention cysts in the maxillary sinuses. The surrounding soft tissues and osseous structures are other mahoney unremarkable. IMPRESSION: 1. Small focus of ischemia in the left high parietal lobe, likely subacute lacunar infarct. Moderate changes of chronic microvascular scheme disease. Clinical correlation and continued follow-up is kody mmended HS:Y
--- NOTE | 2024-06-04 15:53 | MEDREC ---
[facility] Intervention Section I [facility] Intervention: Review courses of therapy (PLEASE CONSIDER D/C ANTIBIOTIC(S) IN ABSENCE OF BACTERIAL INFECTION) LAUREN SUMMERS PHARMACIST Jun 04, 2024 15:53
--- NOTE | 2024-06-04 16:42 | DVHSR ---
APPROVED REPORT EXAM: Two-dimensional and M-mode echocardiogram with Doppler and color Doppler. Blood Pressure: 153/91 mmHg INDICATION Eval cardiac function RISK FACTORS Height: 5'9", Weight: 216 DIMENSIONS LVDd5.0 (3.8-5.7cm)LA (2D)4.4 (1.9-4.0cm)Aortic Root3.5 (2.0-3.7cm) LVDs2.8 (2.5-4.0cm)LA (MM) (1.9-4.0cm)Aortic Cusp Exc1.6 (1.5-2.0cm) EF (%) 74.0 (55-70%)Rt. Atrium4.2 (1.9-4.0cm)Asc. Aorta3.6 cm IVSd1.3 (0.7-1.1cm)RV (D)3.6 (1.8-2.4cm) PWd1.1 (0.7-1.1cm) Mitral Valve MitralMitral Stenosis E wave0.64m/sMV Mean GR.mmHg A wave0.77m/sMV Peak GR.mmHg E/A ratio0.82D MVAcm2 DECEL [id number] 1/2 Timems Aortic Valve Aortic ValveAortic Stenosis V11.12m/Jeanine Mean GR.5mmHg V21.45m/Jeanine Peak GR.8mmHg LVOT Diameter2.2 (1.8-2.4cm)Doppler AVA2.93cm2 AI P 1/2 Poqc000.01ms Pulmonic Valve V21.08m/s Conclusion Normal left ventricular size and dimension. Normal left ventricular systolic function estimated ejec tion fraction 55%. There is a grade 1 diastolic dysfunction. Normal right ventricular size and dimension. Normal right ventricular systolic function. Normal biatrial size and dimension. There is mild aortic valve sclerosis. Normal mitral valve structure function. Normal tricuspid valve structure and function. The pulmonary valve is grossly normal. No pericardial effusion.
[2024-06-04] MEDS: hydrALAZINE HCL 20 MG/ML VL IV PRN (21:41)
[2024-06-04] MEDS: MELATONIN 5 MG TAB PO ONE (23:03)
[2024-06-04] MEDS: MELATONIN 5 MG TAB ONE (23:04)
--- NOTE | 2024-06-04 23:04 | DVHINCON2 ---
Date of service: Jun 04, 2024 Referring Physician Reason for Consultation ALOC History of Present Illness Mr. Silverman is a 63 years old right-handed gentleman with a history of hypertension, diabetes, dyslipidemia, the patient was brought to the [facility] on 06/02/2024 with a chief company of hypoglycemia. At that time, he is awake, oriented to himself only, not able to provide history, also has abnormal behavior, and we have a secure personal stay outside his room, but during my consultation, he was quite pleasant Patient was no clue why he came to the hospital, he does not know what is going on with him medical mahoney, according to his , is not a good historian, during the daytime on 06/02/2024, he walks as if he was, but mentally was off his baseline, around 7:30 p.m. he was mentally altered and his sugar level 25 Around 6-7 years ago, the patient was unarousable at home for unknown duration, the patient was seen in the local [facility], and he was said to have very low glucose level For about two years, the patient has had progressive memory difficulty, he repeats himself, his problem has been especially worse for about one year, the patient was does not remember his grandchildren, and sometimes his children, he went through MRI brain scan and other test in his [facility], but nothing wrong was found, but was given donepezil according to the paperwork from his One of his sisters has progressive memory problems Urinalysis, 06/03/2024: Unremarkable CBC, 06/04/2024: Unremarkable BUN/CR, 06/02/2024: 12/1.41, 06/03/2024: 16/1.35, 06/04/2024: 16/1.22 CMP, 06/04/2024: Unremarkable Vitamin B12, 06/04/2024: 605 TSH, 06/04/2024: 0.68 Echocardiogram, 06/04/2024: Normal left ventricular size and dimension. Normal left ventricular systolic function estimated ejection fraction 55%. There is a grade 1 diastolic dysfunction. Normal right ventricular size and dimension. Normal right ventricular systolic function. Normal biatrial size and dimension. There is mild aortic valve sclerosis. Normal mitral valve structure function. Normal tricuspid valve structure and function. The pulmonary valve is grossly normal. No pericardial effusion Chest X-RAY, 06/02/2024: No acute cardiopulmonary disease CT head, 06/03/2024: No acute intracranial process. Cavernous sinus gas which a re nonspecific but can be seen in the setting of traumatic pneumocephalus versus iatrogenic pneumocephalus versus barotrauma. Clinical correlation is advised MRI head, 06/04/2024: Small focus of ischemia in the left high parietal lobe, likely subacute lacunar infarct. Moderate changes of chronic microvascular scheme disease. Clinical correlation and continued follow-up is recommended Past Medical History Hypertension, diabetes, dyslipidemia Past Surgical History No major surgeries Family History: Patient reports no known family medical history. Family History One sister has memory difficulty, but no other medical problem per his Social History He is not a tobacco smoke, no history of drug or alcohol abuse Allergies: Coded Allergies: No Known Drug Allergy (Verified Allergy, Unknown, 06/02/24) Current Medications Current Medications Medications (Trade) Dose Ordered Sig/Zacarias Route PRN Reason Start Time Stop Time Status Last Admin Enoxaparin Sodium (Lovenox) 40 mg DAILY SC 06/04/24 10:00 06/04/24 12:08 DC 06/04/24 09:54 Ceftriaxone Sodium 50 ml @ 100 mls/hr DAILY@0300 IV 06/04/24 03:00 06/04/24 02:14 Aspirin 81 mg DAILY PO 06/04/24 10:00 06/04/24 09:52 Amlodipine Besylate (Norvasc Tablet) 5 mg DAILY PO 06/04/24 10:00 06/04/24 09:52 Sodium Chloride 1,000 ml @ 75 mls/hr [id number] IV 06/04/24 12:15 06/04/24 14:18 Review of Systems As above, the other systems are negative Vital Signs Vital Signs Date Time Temp Pulse Resp B/P (MAP) Pulse Ox O2 Delivery O2 Flow Rate FiO2 06/04/24 21:41 181/100 06/04/24 20:57 98.1 74 20 99 98.1 06/04/24 08:00 Nasal Cannula* 2 28 Physical Exam GENERAL EXAM: General: the patient is well developed and nourished. No acute distress. HEENT: Normocephalic, neck is supple, no carotid bruits. No mass RESPIRATORY: Normal respiratory effort with symmetrical lung expansion. Lungs clear to auscultation. CARDIOVASCULAR: Regular rate and rhythm with no murmurs. S1, S2. ABDOMEN: Soft, nontender, normal bowel sound NEUROLOGICAL: MENTAL STATUS: HPI SPEECH, LANGUAGE, HIGHER CORTICAL FUNCTION: no aphasia or dysathria. CRANIAL NERVES: #2: Intact visual evans to confrontation. The optic discs were sharp. #3,4,6: Pupils are equal, round and reactive. EOMs full and conjugate. No nystagmus. #5: Facial sensation intact in all three divisions bilaterally. Mandibular strength intact. #7: Facial muscles symmetrical and strength intact. #8: Hearing grossly normal to voice. #9,10: Uvula and soft palate rise in the midline. Swallow and voice are normal. #11: Trapezius and sternomastoid strength intact bilaterally. #12: Tongue midline. No fasciculations or atrophy. SENSATION: Sensation to touch and pinprick is normal. MOTOR: Normal tone in the upper and lower extremity. Normal muscle bulk. No fasciculations. No abnormal movements or posturing. Muscle strength of the major groups in the upper extremities is 5/5. Muscle strength of the major groups in the lower extremities is 5/5. REFLEXES: Deep tendon reflexes normal and symmetrical. No pathological reflexes. CEREBELLAR/COORDINATION: Finger to nose is normal bilaterally. GAIT/STATION: deferred. Labs/Diagnostic Data Labs Test 06/04/24 20:51 06/04/24 06:16 06/03/24 09:48 06/03/24 03:15 Range/Units POC Glucose 185 H 70-106 mg/dl White Blood Count 7.6 # 4.4-10.8 10^3/uL Red Blood Count 4.55 4.5-5.90 10^6/uL Hemoglobin 14.2 13.5-17.5 g/dL Hematocrit 41.2 41.0-53.0 % Mean Corpuscular Volume 90.6 80.0-100.0 fL Mean Corpuscular Hemoglobin 31.3 28.0-32.0 pg Mean Corpuscular Hemoglobin Concent 34.6 32.0-36.0 g/dL Red Cell Distribution Width 13.6 11.8-14.3 % Platelet Count 233 140-450 10^3/uL Mean Platelet Volume 9.1 6.9-10.8 fL Neutrophils (%) (Auto) 66.5 37.0-80.0 % Lymphocytes (%) (Auto) 22.0 10.0-50.0 % Monocytes (%) (Auto) 8.0 0.0-12.0 % Eosinophils (%) (Auto) 2.8 0.0-7.0 % Basophils (%) (Auto) 0.7 0.0-2.0 % Neutrophils # (Auto) 5.0 1.6-8.6 10 ^3/uL Lymphocytes # (Auto) 1.7 0.4-5.4 10 ^3/uL Monocytes # (Auto) 0.6 0-1.3 10 ^3/uL Eosinophils # (Auto) 0.2 0-0.8 10 ^3/uL Basophils # (Auto) 0.1 0-0.2 10 ^3/uL Nucleated Red Blood Cells 0.1 % Sodium Level 143 136-145 mmol/L Potassium Level 3.7 3.5-5.1 mmol/L Chloride Level 109 H 98-107 mmol/L Carbon Dioxide Level 27 20-31 mmol/L Anion Gap 7 5-15 Blood Urea Nitrogen 16 9-23 mg/dL Creatinine 1.22 0.700-1.30 mg/dL Glomerular Filtration Rate Calc 67 >90 mL/min BUN/Creatinine Ratio 13.1 10.0-20.0 Serum Glucose 137 H 74-106 mg/dL Calcium Level 9.5 8.7-10.4 mg/dL Total Bilirubin 0.5 0.2-1.0 mg/dL Aspartate Amino Transferase (AST) 12 L 13-40 U/L Alanine Aminotransferase (ALT) 16 7-40 U/L Alkaline Phosphatase 127 H 46-116 U/L Total Protein 6.8 5.7-8.2 g/dL Albumin 4.1 3.2-4.8 g/dL Vitamin B12 Level 605 211-911 pg/mL Thyroid Stimulating Hormone (TSH) 0.68 0.55-4.78 uIU/mL Troponin I High Sensitivity 351 *H </=54 ng/L Urine Color Light-yellow Yellow Urine Clarity Clear Clear Urine pH 5.5 5.0-9.0 Urine Specific [place] 1.015 1.001-1.035 Urine Protein 1+ H Negative Urine Ketones Negative Negative Urine Blood Negative Negative /uL Urine Nitrite Negative Negative Urine Bilirubin Negative Negative Urine Urobilinogen Normal Negative mg/dL Urine Leukocyte Esterase Negative Negative /uL Urine RBC 1 0 - 3 /hpf Urine WBC 1 0 - 3 /hpf Urine Squamous Epithelial Cells Few <5 /hpf Urine Bacteria None seen None Seen /hpf Urine Glucose 1+ H Normal mg/dL Assessment Altered mental status Hypoxic encephalopathy Metabolic encephalopathy Cognitive dysfunction Likely the patient has Alzheimer disease, he may have at least [id number] degree of dementia Acute stroke MRI, likely asymptomatic Plan/Recommendation Monitoring Supportive treatment Telemetry Lipitor profile Carotid Doppler EEG Aricept 10 mg daily Aspirin 81 mg daily Plavix 75 mg daily for 21 days Lipitor 40 mg daily DVT prophylaxis Haldol 2.5 mg intramuscular Q 8 hours p.r.n. for agitation More recommendation per clinical course Plan discussed with: Spouse, Other VIDA JEFFERY MD Jun 04, 2024 23:04
[2024-06-04] MEDS ORDERED: HALOPERIDOL LACTATE 5 MG/ML INJ VIAL IM PRN (23:45)
[2024-06-05] VITALS (8 sets, daily range): BP systolic 121–151; BP diastolic 77–87; PULSE 68–99; RESP 18–20; TEMP 97.9–98.5; O2SAT 96–100
[2024-06-05] MEDS: diphenhdrAMINE HCL 50 MG/1 ML VL ONE (01:05)
--- NOTE | 2024-06-05 04:01 | DVH ---
Carotid Duplex Date: 06/05/2024 12:14 AM Clinical History: CVA Comparison: None Technique: Duplex Doppler evaluation of the extracranial carotid and vertebral arteries including color Doppler and spectral/pulsed waveform analysis was performed. Findings: RIGHT SIDE: Velocities ratios within limits. LEFT SIDE: not scanned IMPRESSION: No hemodynamically significant stenosis noted in the right carotid system. Reference: Radiology 2003; 229:[id number]
[2024-06-05] MEDS: CLOPIDOGREL BISULFATE 75 MG TAB PO SCH (11:16)
--- NOTE | 2024-06-05 15:53 | DVHDS2 ---
Discharge Summary Date of Admission Jun 03, 2024 at 02:53 Date of Discharge: Jun 05, 2024 Labs/Diagnostic Data: Laboratory Results Test 06/05/24 11:24 06/04/24 06:16 06/03/24 09:48 06/03/24 03:15 POC Glucose 200 mg/dl (70-106) White Blood Count 7.6 10^3/uL (4.4-10.8) Red Blood Count 4.55 10^6/uL (4.5-5.90) Hemoglobin 14.2 g/dL (13.5-17.5) Hematocrit 41.2 % (41.0-53.0) Mean Corpuscular Volume 90.6 fL (80.0-100.0) Mean Corpuscular Hemoglobin 31.3 pg (28.0-32.0) Mean Corpuscular Hemoglobin Concent 34.6 g/dL (32.0-36.0) Red Cell Distribution Width 13.6 % (11.8-14.3) Platelet Count 233 10^3/uL (140-450) Mean Platelet Volume 9.1 fL (6.9-10.8) Neutrophils (%) (Auto) 66.5 % (37.0-80.0) Lymphocytes (%) (Auto) 22.0 % (10.0-50.0) Monocytes (%) (Auto) 8.0 % (0.0-12.0) Eosinophils (%) (Auto) 2.8 % (0.0-7.0) Basophils (%) (Auto) 0.7 % (0.0-2.0) Neutrophils # (Auto) 5.0 10 ^3/uL (1.6-8.6) Lymphocytes # (Auto) 1.7 10 ^3/uL (0.4-5.4) Monocytes # (Auto) 0.6 10 ^3/uL (0-1.3) Eosinophils # (Auto) 0.2 10 ^3/uL (0-0.8) Basophils # (Auto) 0.1 10 ^3/uL (0-0.2) Nucleated Red Blood Cells 0.1 % Sodium Level 143 mmol/L (136-145) Potassium Level 3.7 mmol/L (3.5-5.1) Chloride Level 109 mmol/L (98-107) Carbon Dioxide Level 27 mmol/L (20-31) Anion Gap 7 (5-15) Blood Urea Nitrogen 16 mg/dL (9-23) Creatinine 1.22 mg/dL (0.700-1.30) Glomerular Filtration Rate Calc 67 mL/min (>90) BUN/Creatinine Ratio 13.1 (10.0-20.0) Serum Glucose 137 mg/dL (74-106) Calcium Level 9.5 mg/dL (8.7-10.4) Total Bilirubin 0.5 mg/dL (0.2-1.0) Aspartate Amino Transferase (AST) 12 U/L (13-40) Alanine Aminotransferase (ALT) 16 U/L (7-40) Alkaline Phosphatase 127 U/L (46-116) Total Protein 6.8 g/dL (5.7-8.2) Albumin 4.1 g/dL (3.2-4.8) Vitamin B12 Level 605 pg/mL (211-911) Thyroid Stimulating Hormone (TSH) 0.68 uIU/mL (0.55-4.78) Troponin I High Sensitivity 351 ng/L (</=54) Urine Color Light-yellow (Yellow) Urine Clarity Clear (Clear) Urine pH 5.5 (5.0-9.0) Urine Specific [place] 1.015 (1.001-1.035) Urine Protein 1+ (Negative) Urine Ketones Negative (Negative) Urine Blood Negative /uL (Negative) Urine Nitrite Negative (Negative) Urine Bilirubin Negative (Negative) Urine Urobilinogen Normal mg/dL (Negative) Urine Leukocyte Esterase Negative /uL (Negative) Urine RBC 1 /hpf (0 - 3) Urine WBC 1 /hpf (0 - 3) Urine Squamous Epithelial Cells Few /hpf (<5) Urine Bacteria None seen /hpf (None Seen) Urine Glucose 1+ mg/dL (Normal) Other Laboratory Tests 06/04/24 06:16 Brief Hx & Hospital Course: see dictated note Condition at Discharge: Fair Final Diagnosis/Problems List aloc Discharge Disposition: Home Discharge Instruct/Medications Diet: Consistent carbohydrate, Cardiac 2g Na,low cholest Activity: No Restrictions, As Tolerated Follow Up/Referral: fu with serrato Medications: resume home meds Discharge Statement: "Patient was advised to return to the ER or call 911 if any headaches, dizziness, shortness of breath, chest pain, abdominal pain, bleeding, fevers, or worsening of medical condition. Patient was counseled about treatment plan, medications, possible side effects, patientverbalized understanding. All questions were answered to the best of my ability. This discharge took greater then 30 minutes in planning, reviewing documentation, counseling the patient, and discussing with other team members." ASSESSMENT ASSESSMENT Assessment aloc Date of Service: Jun 05, 2024 Billing Provider: ROBERTH HARGROVE MD Common Visit Codes: [id number] DISCH DAY >30min ROBERTH HARGROVE MD Jun 05, 2024 15:53
[2024-06-05] MEDS ORDERED: CLOP75TA70 PO (15:58)
[2024-06-05] MEDS ORDERED: ASPI-325 PO (15:58)
[2024-06-05] MEDS ORDERED: DONE10TA9 PO (15:58)
[2024-06-05] MEDS ORDERED: ATOR-507 PO (15:58)
--- NOTE | 2024-06-05 17:09 | DVHDS ---
DATE OF DISCHARGE: 06/05/2024 HISTORY OF PRESENT ILLNESS: The patient is a 63-year-old gentleman who was admitted with history of being nonresponsive and subsequently noted to be hypoglycemic. The patient has history of diabetes, hypertension, hyperlipidemia. HOSPITAL COURSE: The patient had a brain MRI that showed a small focus of ischemia in the left high parietal lobe, possibly a subacute lacunar infarct. The patient was seen in Neurology consult by Dr. Rojo. The patient as per my discussion with his has been having worsening memory issues and Dr. Rojo felt that he may have a possible state of dementia. The patient had echocardiogram done that showed ejection fraction of 55%. Carotid Dopplers showed no significant stenosis. The patient will now be discharged home to be on aspirin 81 mg daily, Plavix 75 mg daily, Aricept 10 mg daily, Lipitor 40 mg bedtime. He will follow up with [place] physicians. FINAL DIAGNOSES: Therefore, * Encephalopathy, likely hypoglycemic/metabolic. * Likely a subacute/acute lacunar infarct. * Diabetes mellitus. * Hypertension. * Hyperlipidemia. * Acute renal failure, questionable vasomotor nephropathy. * Non-ST elevation myocardial infarction, likely type 2. * Likely Alzheimer's dementia. The patient's vitamin B12 and TSH levels were within normal limits. Time spent in discharge planning and review of plan with the patient and nursing was 38 minutes. I also attempted to call his , Amber to give her an update. MD MINE Mcdonald/MORA TID: [id number] RECEIPT: [id number]
[2024-06-05 19:27] LABS: Chloride 104 mmol/L (98-107); Potassium 4.2 mmol/L (3.5-5.1); Sodium 140 mmol/L (136-145)
[2024-06-05 19:28] LABS: Anion Gap 7 (5-15); Calcium 9.9 mg/dL (8.7-10.4); Carbon Dioxide 29 mmol/L (20-31)
[2024-06-05 19:33] LABS: BUN/Creatinine Ratio 13.2 (10.0-20.0); Blood Urea Nitrogen 18 mg/dL (9-23); Glucose 222 mg/dL (74-106); Triglycerides 73 mg/dL (< 150)
[2024-06-05 19:34] LABS: LDL Cholesterol 62 mg/dL (< 100)
[2024-06-05 19:35] LABS: Cholesterol 109 mg/dL (< 200); HDL Cholesterol 33 mg/dL (40-59)
[2024-06-05] MEDS: DONEPEZIL HYDROCHLORIDE 5 MG TAB PO SCH (21:05)
--- NOTE | 2024-06-05 22:31 | DVHPN2 ---
Progress Note - Dictate Date Seen: Jun 05, 2024 Medical Necessity Reason Pt with a Central, PICC or Fol: No Subjective Mr. Silverman is a 63 years old right-handed gentleman with a history of hypertension, diabetes, dyslipidemia, the patient was brought to the [facility] on 06/02/2024 with a chief company of hypoglycemia. I have seen and examined the patient, I have discussed with her nurses, and other medical staff, I have discussed the case with He is awake, oriented to person, and possible to place as well, he was happy, no new complaints Urinalysis, 06/03/2024: Unremarkable CBC, 06/04/2024: Unremarkable BUN/CR, 06/02/2024: 12/1.41, 06/03/2024: 16/1.35, 06/04/2024: 16/1.22 CMP, 06/04/2024: Unremarkable TG/HDL/LDL/HDL, 06/05/2024: 73/109/62/33 Vitamin B12, 06/04/2024: 605 TSH, 06/04/2024: 0.68 Echocardiogram, 06/04/2024: Normal left ventricular size and dimension. Normal left ventricular systolic function estimated ejection fraction 55%. There is a grade 1 diastolic dysfunction. Normal right ventricular size and dimension. Normal right ventricular systolic function. Normal biatrial size and dimension. There is mild aortic valve sclerosis. Normal mitral valve structure function. Normal tricuspid valve structure and function. The pulmonary valve is grossly normal. No pericardial effusion Carotid Doppler, 06/05/2024: No hemodynamically significant stenosis noted in the right carotid system Chest X-RAY, 06/02/2024: No acute cardiopulmonary disease CT head, 06/03/2024: No acute intracranial process. Cavernous sinus gas which are nonspecific but can be seen in the setting of traumatic pneumocephalus versus iatrogenic pneumocephalus versus barotrauma. Clinical correlation is advised MRI head, 06/04/2024: Small focus of ischemia in the left high parietal lobe, likely subacute lacunar infarct. Moderate changes of chronic microvascular scheme disease. Clinical correlation and continued follow-up is recommended vital signs Vital Sign Date Time Temp Pulse Resp B/P (MAP) Pulse Ox O2 Delivery O2 Flow Rate FiO2 06/05/24 22:00 97.9 77 18 151/86 (107) 97 97.9 06/05/24 20:00 Room Air* 0 N/A Nasal Cannula* Total Intake and Output 06/04/24 06/04/24 06/05/24 15:00 23:00 07:00 Intake Total 1000 ml 200 ml Balance 1000 ml 200 ml medications Current Medications Medications Dose Ordered Sig/Zacarias Route Start Time Stop Time Status Last Admin Dose Admin Enoxaparin Sodium 80 mg DAILY SC 06/03/24 10:00 UNV Diagnostic Test (Pha) 1 strip ACHS 06/03/24 07:00 06/05/24 21:06 1 STRIP Insulin Human Regular ACHS SC 06/03/24 07:00 06/05/24 21:09 3 UNITS Dextrose 50 ml UD PRN IV 06/03/24 03:00 Sodium Chloride 10 ml Q8HR IV 06/03/24 06:00 06/05/24 21:06 10 ML Acetaminophen/ Hydrocodone Bitart 1 tab Q4HP PRN PO 06/03/24 03:00 Ondansetron HCl 4 mg Q4HP PRN IV 06/03/24 03:00 Docusate Sodium 100 mg BIDPRN PRN PO 06/03/24 03:00 Acetaminophen 650 mg Q6HP PRN PO 06/03/24 03:00 Nitroglycerin 0.4 mg Q5MINP PRN SL 06/03/24 03:00 Morphine Sulfate 2 mg Q30M PRN IV 06/03/24 03:00 Hydralazine HCl 10 mg Q6HP PRN IV 06/03/24 03:15 06/04/24 21:41 10 MG Ceftriaxone Sodium 50 ml @ 100 mls/hr DAILY@0300 IV 06/04/24 03:00 06/04/24 02:14 100 MLS/HR Aspirin 81 mg DAILY PO 06/04/24 10:00 06/05/24 11:16 81 MG Atorvastatin Calcium 40 mg HS PO 06/03/24 22:00 06/05/24 21:05 40 MG Amlodipine Besylate 5 mg DAILY PO 06/04/24 10:00 06/05/24 11:21 5 MG Sodium Chloride 1,000 ml @ 75 mls/hr [id number] IV 06/04/24 12:15 06/04/24 14:18 75 MLS/HR Donepezil HCl 10 mg HS PO 06/05/24 22:00 06/05/24 21:05 10 MG Haloperidol Lactate 2.5 mg Q8HP PRN IM 06/04/24 23:45 Clopidogrel Bisulfate 75 mg DAILY PO 06/05/24 10:00 06/26/24 23:00 06/05/24 11:16 75 MG objective General: the patient is well developed and nourished. No acute distress. MENTAL STATUS: Subjective SPEECH, LANGUAGE, HIGHER CORTICAL FUNCTION: no aphasia or dysathria. CRANIAL NERVES: Pupils are equal, round and reactive. EOMs full and conjugate. No nystagmus. Facial sensation intact in all three divisions bilaterally. Mandibular strength intact. Facial muscles symmetrical and strength intact. SENSATION: Sensation to touch and pinprick is normal. MOTOR: Normal tone in the upper and lower extremity. Normal muscle bulk. No fasciculations. No abnormal movements or posturing. Muscle strength of the major groups in the extremities is 5/5. REFLEXES: Deep tendon reflexes normal and symmetrical. No pathological reflexes. CEREBELLAR/COORDINATION: Finger to nose is normal bilaterally. GAIT/STATION: deferred. laboratory and microbiology Laboratory Tests 06/05/24 18:54 06/04/24 06:16 Test 06/05/24 18:54 Range/Units Serum Glucose 222 H 74-106 mg/dL Problem List Altered mental status Hypoxic encephalopathy Metabolic encephalopathy Cognitive dysfunction Likely the patient has Alzheimer disease, he may have at least [id number] degree of dementia Acute stroke MRI, likely asymptomatic Assessment/Plan Monitoring Supportive treatment Telemetry EEG Aricept 10 mg daily Aspirin 81 mg daily Plavix 75 mg daily for 21 days Lipitor 40 mg daily DVT prophylaxis Haldol 2.5 mg intramuscular Q 8 hours p.r.n. for agitation More recommendation per clinical course This medical document was created using an electronic medical record system with [employer] dictation system. Although this document has been carefully reviewed, there may still be some phonetic and typographical errors. These areas are purely typographical due to imperfections of the software programs, and do not reflect any compromise in the patient's medical care. Prognosis poor Plan discussed with: Other Total Time (mins): 40 VIDA JEFFERY MD Jun 05, 2024 22:31
[2024-06-06] VITALS (7 sets, daily range): BP systolic 144–168; BP diastolic 84–101; PULSE 69–89; RESP 18–22; TEMP 98.2–98.3; O2SAT 97–98
--- NOTE | 2024-06-06 00:13 | DVHEEG2 ---
Neurology EEG Procedural Note Procedural Note EXAM DATE: 06/05/2024 REFERRING DOCTOR: Dr. Jeffery TECHNIQUE: Eighteen channels of EEG, 2 channels of EOG, and 1 channel of EKG were recorded using the International 10/20 system. CLINICAL DATA: The patient was referred for an EEG evaluation for the evidence of seizure disorder. MEDICATIONS: See the chart BACKGROUND ACTIVITY: The patient was asleep through the recording, the EEG was consistent with stage 1 sleep. ACTIVATION: Hyperventilation: Not done Photic Stimulation: Not done Sleep: Noticed IMPRESSION: This is a normal sleep EEG. No focal, lateralized, or epileptiform features are noted. If clinically indicated to rule out a seizure disorder, recommend repeat EEG with sleep deprivation. The EKG channel showed a regular heart rate of 72/[place] [address] VIDA JEFFERY MD Jun 06, 2024 00:13
--- NOTE | 2024-06-06 12:43 | DVHPN2 ---
Progress Note Date Seen: Jun 06, 2024 Medical Necessity Reason Pt with a Central, PICC or Fol: No Subjective Patient reports: No new complaints Review of Systems: HEENT:Normal, CVS:Normal, RESPIRATORY:Normal, GI:Normal, :Normal, MSK:Normal, NEURO:Normal Objective vital signs Vital Sign Date Time Temp Pulse Resp B/P (MAP) Pulse Ox O2 Delivery O2 Flow Rate FiO2 06/06/24 08:49 98.2 87 20 159/101 (120) 97 98.2 06/05/24 20:00 Room Air* 0 N/A Nasal Cannula* Total Intake and Output 06/05/24 06/05/24 06/06/24 15:00 23:00 07:00 Intake Total 980 ml 300 ml Balance 980 ml 300 ml medications Current Medications Medications Dose Ordered Sig/Zacarias Route Start Time Stop Time Status Last Admin Dose Admin Enoxaparin Sodium 80 mg DAILY SC 06/03/24 10:00 UNV Diagnostic Test (Pha) 1 strip ACHS 06/03/24 07:00 06/05/24 21:06 1 STRIP Insulin Human Regular ACHS SC 06/03/24 07:00 06/05/24 21:09 3 UNITS Dextrose 50 ml UD PRN IV 06/03/24 03:00 Sodium Chloride 10 ml Q8HR IV 06/03/24 06:00 06/05/24 21:06 10 ML Acetaminophen/ Hydrocodone Bitart 1 tab Q4HP PRN PO 06/03/24 03:00 Ondansetron HCl 4 mg Q4HP PRN IV 06/03/24 03:00 Docusate Sodium 100 mg BIDPRN PRN PO 06/03/24 03:00 Acetaminophen 650 mg Q6HP PRN PO 06/03/24 03:00 Nitroglycerin 0.4 mg Q5MINP PRN SL 06/03/24 03:00 Morphine Sulfate 2 mg Q30M PRN IV 06/03/24 03:00 Hydralazine HCl 10 mg Q6HP PRN IV 06/03/24 03:15 06/04/24 21:41 10 MG Ceftriaxone Sodium 50 ml @ 100 mls/hr DAILY@0300 IV 06/04/24 03:00 06/04/24 02:14 100 MLS/HR Aspirin 81 mg DAILY PO 06/04/24 10:00 06/05/24 11:16 81 MG Atorvastatin Calcium 40 mg HS PO 06/03/24 22:00 06/05/24 21:05 40 MG Amlodipine Besylate 5 mg DAILY PO 06/04/24 10:00 06/05/24 11:21 5 MG Sodium Chloride 1,000 ml @ 75 mls/hr [id number] IV 06/04/24 12:15 06/04/24 14:18 75 MLS/HR Donepezil HCl 10 mg HS PO 06/05/24 22:00 06/05/24 21:05 10 MG Haloperidol Lactate 2.5 mg Q8HP PRN IM 06/04/24 23:45 Clopidogrel Bisulfate 75 mg DAILY PO 06/05/24 10:00 06/26/24 23:00 06/05/24 11:16 75 MG Examination: GENERAL:Normal, HEENT:Normal, NECK:Normal, LUNGS:Normal, CVS:Normal, ABDOMEN:Normal, MSK:Normal, SKIN:Normal, NEURO:Normal, :Normal laboratory and microbiology Laboratory Tests 06/05/24 18:54 06/04/24 06:16 Test 06/05/24 18:54 Range/Units Serum Glucose 222 H 74-106 mg/dL Problem List/Assessment/Plan Problem List/Assessment/Plan #1 encephalopathy - metabolic/hypoglycemia #2 dm: ssi #3 htn #4 hyperlipidemia #5 non compliance with meds/diet #6 acute renal failure ?vasomotor nephropathy #7 nstemi: cardio eval advance care planning- full code- time spent 19 mins long dw Concha- explained plan of care dc plan to home today Plan discussed with: Patient My Orders My Orders Orders - ROBERTH HARGROVE MD Procedure Category Date Status Time Discharge DISCHARGE 06/05/24 Transmitted 15:51 Date of Service: Jun 06, 2024 Billing Provider: ROBERTH HARGROVE MD Common Visit Codes: [id number] INP/OBS CARE(HIGH) ROBERTH HARGROVE MD Jun 06, 2024 12:43
== END 2024-06-06 11:28 | disposition home or self-care (01) | DRG 64 ==
LOC: EDBD 20:06 → ER 20:06 → TELE 06-03 02:53 → TELE-WESTW 06-03 05:37
PROVIDERS: ADMIT Nurse Practitioner Family; ATTEND Internal Medicine
DX: I63.9 Cerebral infarction, unspecified (principal); G93.41 Metabolic encephalopathy; I21.A1 Myocardial infarction type 2; N17.0 Acute kidney failure with tubular necrosis; G93.1 Anoxic brain damage, not elsewhere classified; E11.22 Type 2 diabetes mellitus with diabetic chronic kidney disease; E11.649 Type 2 diabetes mellitus with hypoglycemia without coma; D72.829 Elevated white blood cell count, unspecified; E78.5 Hyperlipidemia, unspecified; E87.6 Hypokalemia; I16.0 Hypertensive urgency; G30.9 Alzheimer's disease, unspecified; N18.9 Chronic kidney disease, unspecified; I12.9 Hypertensive chronic kidney disease with stage 1 through stage 4 chronic kidney disease, or unspecified chronic kidney disease; I35.8 Other nonrheumatic aortic valve disorders; F02.80 Dementia in other diseases classified elsewhere, unspecified severity, without behavioral disturbance, psychotic disturbance, mood disturbance, and anxiety; Z79.02 Long term (current) use of antithrombotics/antiplatelets; Z79.899 Other long term (current) drug therapy; Z79.82 Long term (current) use of aspirin
CPT/HCPCS: 36415; 70450; 70551; 71045; 80048; 80053; 80061; 81001; 82607; 82962; 84443; 84484; 85025; 93306; 93886; 95819; 96374; 99291; G0378; J1815